=== PATIENT | female | born 1960 | race Caucasian/White ===

== ENCOUNTER 2016-11-24 09:01 | Emergency (ER) | payer SELFPAY ==
[~2016-11-24] VITALS: Ht 162.6 cm; Wt 126.6 kg
[2016-11-24 10:09] LABS: BASOPHIL COUNT 0.1 K/uL (0-0.1); EOSINOPHIL COUNT 0.2 K/uL (0-0.3); IMMATURE GRANULOCYTE (%) 2.8 % (0.0-0.7); IMMATURE GRANULOCYTE COUNT 0.3 K/uL; INSTRUMENT ABS NEUTROPHIL CT 8.1 K/uL; MCH 28.1 PG (29.0-34.0); MCHC 31.3 G/DL (30.0-36.0); MCV 89.6 FL (83-99); MONOCYTE (%) 6.9 % (3-12); MONOCYTE COUNT 0.7 K/uL (0-0.8); NEUTROPHIL (%) 77.6 % (45-76); NEUTROPHIL COUNT 8.1 K/uL (1.8-6.4); PLATELET COUNT 261 K/uL (156-360); RBC DIS.WIDTH-CV 14.2 % (11.8-14.6); RBC DIS.WIDTH-SD 46.6 % (39-53); RED BLOOD COUNT 5.02 M/uL (3.80-5.20); WHITE BLOOD COUNT 10.4 K/uL (4.1-10.2)
[2016-11-24 10:26] LABS: CHLORIDE 103 mEq/L (99-109); POTASSIUM 4.9 mEq/L (3.7-5.4); SODIUM 141 mEq/L (136-147)
[2016-11-24 10:28] LABS: GLUCOSE 99 mg/dL (70-99)
[2016-11-24 10:29] LABS: ANION GAP 7 MEQ/L (2-14)
[2016-11-24 10:31] LABS: GFR ESTIMATE (CALCULATED) > 59 mL/min/
[2016-11-24 10:32] LABS: UREA NITROGEN (BUN) 20 mg/dL (9-23)
[2016-11-24 10:34] LABS: LIPASE 21 U/L (1.0-51.0)
[2016-11-24] MEDS ORDERED: PERCOCET 5/31 TABLET PO (14:12)
[2016-11-24] MEDS ORDERED: AUGMENTIN875 MG PO (14:44)
[2016-11-24 14:49] VITALS: BP 159/84
== END 2016-11-24 14:50 | disposition home or self-care (01) ==
LOC: EME 09:01
PROVIDERS: Emergency Medicine
PROC: 0S9C3ZZ Drainage of Right Knee Joint, Percutaneous Approach (ICD-10-PCS; principal; 2016-11-24)
DX: M17.11 Unilateral primary osteoarthritis, right knee (principal); M71.21 Synovial cyst of popliteal space [Baker], right knee; R59.0 Localized enlarged lymph nodes; I73.00 Raynaud's syndrome without gangrene; Z87.891 Personal history of nicotine dependence
CPT/HCPCS: 71020; 73564; 80048; 83690; 85025; 87070; 87205; 89051; 89060; 93971; 99281; 99283

== ENCOUNTER 2017-03-14 16:16 | Inpatient (IN) | payer OTHER ==
[~2017-03-14] VITALS: Ht 160 cm; Wt 162.4 kg
[~2017-03-14 16:16] MED LIST: ADVIL,NUPRIN,M200 MG PO; AUGMENTIN875 MG PO; NICOTINE PATCH1 EAC2 TD; PERCOCET 5/31 TABLET PO; VENTOLIN HFA18 GM IH
[2017-03-14 17:07] LABS: HEMATOCRIT 43.1 % (36.0-46.0); MCH 27.6 PG (29.0-34.0); MCHC 31.3 G/DL (30.0-36.0); MEAN PLAT.VOLUME 8.2 uM^3 (9.5-12.4); PLATELET COUNT 316 K/uL (156-360); RBC DIS.WIDTH-CV 14.9 % (11.8-14.6); WHITE BLOOD COUNT 14.9 K/uL (4.1-10.2)
[2017-03-14 17:15] LABS: INTER. NORMALIZED RATIO 1.2
[2017-03-14 17:16] LABS: CHLORIDE 99 mEq/L (99-109); POTASSIUM 4.2 mEq/L (3.7-5.4); SODIUM 139 mEq/L (136-147)
[2017-03-14 17:18] LABS: PTT 30.5 SEC (25-37)
[2017-03-14 17:18] LABS: GLUCOSE 118 mg/dL (70-99)
[2017-03-14 17:19] LABS: ANION GAP 10 MEQ/L (2-14)
[2017-03-14 17:20] LABS: TOTAL BILIRUBIN 0.3 mg/dL (0.0-1.0)
[2017-03-14 17:22] LABS: ALKALINE PHOSPHATASE 100 IU/L (3-129); GFR ESTIMATE (CALCULATED) > 59 mL/min/
[2017-03-14 17:23] LABS: UREA NITROGEN (BUN) 15 mg/dL (9-23)
[2017-03-14 17:43] LABS: ABS NEUTROPHIL COUNT 12.8; ANISOCYTOSIS 1+; BAND NEUTROPHILS 0.9 % (0-8.0); BASOPHILS 0.9 %; EOSINOPHIL ABS CT 0.5; EOSINOPHILS 3.5 % (0-5.0); INSTRUMENT ABS NEUTROPHIL CT 12.4 K/uL; LYMPHOCYTES 2.6 % (15.0-45.0); METAMYELOCYTES 1.7 %; NUCLEATED RBC'S 0.9; PLAT.SUFFICIENCY INCREASED; PLATELET CLUMPS PRESENT - PLATELET COUNT APPEARS INCREASED; SEG.NEUTROPHILS 85.2 % (46.0-76.0)
[2017-03-14] MEDS ORDERED: MORPHABOND ER15 MG PO (21:19)
[2017-03-14] MEDS ORDERED: OXYCODONE HCL10 MG PO (21:20)
[2017-03-14] MEDS ORDERED: ATIVAN0.5 MG PO (21:20)
[2017-03-15] VITALS (7 sets, daily range): BP systolic 118–143; BP diastolic 57–82
[2017-03-15 09:40] LABS: HEMATOCRIT 39.9 % (36.0-46.0); MCH 27.1 PG (29.0-34.0); MCHC 31.3 G/DL (30.0-36.0); MCV 86.4 FL (83-99); MEAN PLAT.VOLUME 8.2 uM^3 (9.5-12.4); PLATELET COUNT 336 K/uL (156-360); RBC DIS.WIDTH-CV 14.9 % (11.8-14.6); RBC DIS.WIDTH-SD 47.8 % (39-53); RED BLOOD COUNT 4.62 M/uL (3.80-5.20); WHITE BLOOD COUNT 13.5 K/uL (4.1-10.2)
[2017-03-15 09:44] LABS: INTER. NORMALIZED RATIO 1.2; PROTHROMBIN TIME 13.7 SEC (10.2-12.9)
[2017-03-15 09:47] LABS: PTT 31.5 SEC (25-37)
[2017-03-15 10:04] LABS: ALKALINE PHOSPHATASE 89 IU/L (3-129); ANION GAP 8 MEQ/L (2-14); CHLORIDE 97 MEQ/L (99-109); GFR ESTIMATE (CALCULATED) > 59 mL/min/; GLUCOSE 109 mg/dL (70-99); SAMPLE HEMOLYSIS CHECK 0; SAMPLE ICTERIC CHECK 0; SAMPLE LIPEMIA CHECK 0; SODIUM 136 MEQ/L (136-147); TOTAL BILIRUBIN 0.3 MG/DL (0.0-1.0); UREA NITROGEN (BUN) 14 mg/dL (9-23)
[2017-03-15 12:28] LABS: LACTATE DEHYDROGENASE 515 IU/L (20-246)
[2017-03-16 04:05] VITALS: BP 119/56
[2017-03-16 04:33] LABS: MCH 26.8 PG (29.0-34.0); MCHC 30.2 G/DL (30.0-36.0); MCV 88.6 FL (83-99); MEAN PLAT.VOLUME 8.3 uM^3 (9.5-12.4); PLATELET COUNT 352 K/uL (156-360); RBC DIS.WIDTH-CV 14.9 % (11.8-14.6); RBC DIS.WIDTH-SD 48.7 % (39-53); RED BLOOD COUNT 4.74 M/uL (3.80-5.20); WHITE BLOOD COUNT 14.6 K/uL (4.1-10.2)
[2017-03-16 04:42] LABS: CHLORIDE 101 mEq/L (99-109); MAGNESIUM 2.1 mg/dL (1.3-2.7); POTASSIUM 4.1 mEq/L (3.7-5.4); SODIUM 140 mEq/L (136-147)
[2017-03-16 04:44] LABS: GLUCOSE 114 mg/dL (70-99)
[2017-03-16 04:46] LABS: ANION GAP 12 MEQ/L (2-14); TOTAL BILIRUBIN 0.3 mg/dL (0.0-1.0)
[2017-03-16 04:48] LABS: ALKALINE PHOSPHATASE 96 IU/L (3-129); GFR ESTIMATE (CALCULATED) > 59 mL/min/
[2017-03-16 04:49] LABS: UREA NITROGEN (BUN) 11 mg/dL (9-23)
[2017-03-16 05:33] LABS: ANISOCYTOSIS 2+; BASOPHILS 0.9 %; EOSINOPHIL ABS CT 0.5; EOSINOPHILS 3.5 % (0-5.0); INSTRUMENT ABS NEUTROPHIL CT 11.6 K/uL; LYMPHOCYTES 4.4 % (15.0-45.0); MICROCYTOSIS 1+; MYELOCYTES 2.6 %; PLAT.SUFFICIENCY ADEQUATE; POLYCHROMASIA 2+; ROULEAUX 1+; SEG.NEUTROPHILS 82.5 % (46.0-76.0); STOMATOCYTES 1+
[2017-03-16 07:53] VITALS: BP 118/60
[2017-03-16 11:40] VITALS: BP 118/71
[2017-03-16 15:17] VITALS: BP 113/58
[2017-03-16 17:47] VITALS: BP 97/50
[2017-03-17] VITALS (8 sets, daily range): BP systolic 122–146; BP diastolic 57–81
[2017-03-17 06:12] LABS: MCH 26.4 PG (29.0-34.0); MCV 88.1 FL (83-99); MEAN PLAT.VOLUME 8.1 uM^3 (9.5-12.4); PLATELET COUNT 353 K/uL (156-360); RBC DIS.WIDTH-CV 14.8 % (11.8-14.6); RBC DIS.WIDTH-SD 47.7 % (39-53); RED BLOOD COUNT 4.54 M/uL (3.80-5.20); WHITE BLOOD COUNT 13.5 K/uL (4.1-10.2)
[2017-03-17 06:39] LABS: ALKALINE PHOSPHATASE 85 IU/L (3-129); ANION GAP 7 MEQ/L (2-14); CHLORIDE 100 MEQ/L (99-109); GFR ESTIMATE (CALCULATED) > 59 mL/min/; GLUCOSE 114 mg/dL (70-99); MAGNESIUM 2.2 mg/dl (1.3-2.7); POTASSIUM 4.1 MEQ/L (3.7-5.4); SAMPLE HEMOLYSIS CHECK 0; SAMPLE ICTERIC CHECK 0; SAMPLE LIPEMIA CHECK 0; SODIUM 142 MEQ/L (136-147); UREA NITROGEN (BUN) 15 mg/dL (9-23); URIC ACID 4.4 mg/dL (3.1-9.2)
[2017-03-17 06:43] LABS: TOTAL BILIRUBIN 0.4 MG/DL (0.0-1.0)
[2017-03-17 06:57] LABS: ABS NEUTROPHIL COUNT 11.2; ANISOCYTOSIS 1+; BAND NEUTROPHILS 0.9 % (0-8.0); EOSINOPHIL ABS CT 0.6; EOSINOPHILS 4.3 % (0-5.0); INSTRUMENT ABS NEUTROPHIL CT 10.8 K/uL; LYMPHOCYTES 3.5 % (15.0-45.0); METAMYELOCYTES 0.9 %; MYELOCYTES 5.2 %; PLAT.SUFFICIENCY ADEQUATE; POLYCHROMASIA 1+; SEG.NEUTROPHILS 81.7 % (46.0-76.0); SMUDGE CELLS 5.2
[2017-03-17 14:27] LABS: POC NON-PRINT COM 1 ND
[2017-03-18] VITALS (8 sets, daily range): BP systolic 113–141; BP diastolic 55–71
[2017-03-18 08:20] LABS: HEMATOCRIT 41.5 % (36.0-46.0); MCH 27.6 PG (29.0-34.0); MCHC 30.8 G/DL (30.0-36.0); MCV 89.6 FL (83-99); MEAN PLAT.VOLUME 8.4 uM^3 (9.5-12.4); PLATELET COUNT 370 K/uL (156-360); RBC DIS.WIDTH-CV 15.2 % (11.8-14.6); RBC DIS.WIDTH-SD 49.4 % (39-53); RED BLOOD COUNT 4.63 M/uL (3.80-5.20); WHITE BLOOD COUNT 13.2 K/uL (4.1-10.2)
[2017-03-18 08:43] LABS: MAGNESIUM 2.3 mg/dl (1.3-2.7); URIC ACID 4.1 mg/dL (3.1-9.2)
[2017-03-18 08:47] LABS: ALKALINE PHOSPHATASE 86 IU/L (3-129); ANION GAP 4 MEQ/L (2-14); CHLORIDE 99 MEQ/L (99-109); GFR ESTIMATE (CALCULATED) > 59 mL/min/; GLUCOSE 95 mg/dL (70-99); POTASSIUM 4.9 MEQ/L (3.7-5.4); SAMPLE HEMOLYSIS CHECK 0; SAMPLE ICTERIC CHECK 0; SAMPLE LIPEMIA CHECK 0; SODIUM 141 MEQ/L (136-147); TOTAL BILIRUBIN 0.4 MG/DL (0.0-1.0); UREA NITROGEN (BUN) 11 mg/dL (9-23)
[2017-03-18 08:55] LABS: ABS NEUTROPHIL COUNT 10.7; ATYPICAL LYMPHOCYTE 0.9 %; EOSINOPHIL ABS CT 0.3; EOSINOPHILS 2.6 % (0-5.0); HEMATOLOGY COMMENT 1 SN; INSTRUMENT ABS NEUTROPHIL CT 10.4 K/uL; LYMPHOCYTES 6.9 % (15.0-45.0); METAMYELOCYTES 0.9 %; MYELOCYTES 1.7 %; PLAT.SUFFICIENCY INCREASED; POLYCHROMASIA 1+; SEG.NEUTROPHILS 80.9 % (46.0-76.0); SMUDGE CELLS 0.9
[2017-03-18 19:28] LABS: ALKALINE PHOSPHATASE 92 IU/L (3-129); ANION GAP 9 MEQ/L (2-14); CHLORIDE 101 MEQ/L (99-109); GFR ESTIMATE (CALCULATED) > 59 mL/min/; GLUCOSE 140 mg/dL (70-99); MAGNESIUM 2.2 mg/dl (1.3-2.7); POTASSIUM 4.4 MEQ/L (3.7-5.4); SAMPLE HEMOLYSIS CHECK 0; SAMPLE ICTERIC CHECK 0; SAMPLE LIPEMIA CHECK 0; SODIUM 140 MEQ/L (136-147); UREA NITROGEN (BUN) 10 mg/dL (9-23)
[2017-03-18 19:46] LABS: TOTAL BILIRUBIN 0.3 MG/DL (0.0-1.0)
[2017-03-19 04:03] VITALS: BP 155/74
[2017-03-19 06:04] LABS: BASOPHIL COUNT 0.1 K/uL (0-0.1); EOSINOPHIL (%) 0 % (0-5); HEMATOCRIT 40.2 % (36.0-46.0); IMMATURE GRANULOCYTE (%) 3.9 % (0.0-0.7); IMMATURE GRANULOCYTE COUNT 0.6 K/uL; INSTRUMENT ABS NEUTROPHIL CT 14.2 K/uL; LYMPHOCYTE COUNT 0.2 K/uL (1.0-2.8); MCH 26.7 PG (29.0-34.0); MCHC 30.6 G/DL (30.0-36.0); MCV 87.2 FL (83-99); MEAN PLAT.VOLUME 8.2 uM^3 (9.5-12.4); MONOCYTE (%) 3.3 % (3-12); MONOCYTE COUNT 0.5 K/uL (0-0.8); NEUTROPHIL (%) 90.9 % (45-76); NEUTROPHIL COUNT 14.2 K/uL (1.8-6.4); PLATELET COUNT 298 K/uL (156-360); RBC DIS.WIDTH-CV 14.5 % (11.8-14.6); RBC DIS.WIDTH-SD 46.3 % (39-53); RED BLOOD COUNT 4.61 M/uL (3.80-5.20); WHITE BLOOD COUNT 15.7 K/uL (4.1-10.2)
[2017-03-19 06:28] LABS: MAGNESIUM 2.3 mg/dl (1.3-2.7); URIC ACID 4.7 mg/dL (3.1-9.2)
[2017-03-19 06:41] LABS: ALKALINE PHOSPHATASE 80 IU/L (3-129); ANION GAP 6 MEQ/L (2-14); CHLORIDE 102 MEQ/L (99-109); GFR ESTIMATE (CALCULATED) > 59 mL/min/; GLUCOSE 140 mg/dL (70-99); POTASSIUM 4.4 MEQ/L (3.7-5.4); SAMPLE HEMOLYSIS CHECK 0; SAMPLE ICTERIC CHECK 0; SAMPLE LIPEMIA CHECK 0; SODIUM 139 MEQ/L (136-147); TOTAL BILIRUBIN 0.3 MG/DL (0.0-1.0); UREA NITROGEN (BUN) 12 mg/dL (9-23)
[2017-03-19 07:27] VITALS: BP 117/68
[2017-03-19 11:49] VITALS: BP 128/67
[2017-03-19 15:41] VITALS: BP 145/76
[2017-03-19 17:49] LABS: ALKALINE PHOSPHATASE 88 IU/L (3-129); ANION GAP 11 MEQ/L (2-14); CHLORIDE 103 MEQ/L (99-109); GFR ESTIMATE (CALCULATED) > 59 mL/min/; GLUCOSE 153 mg/dL (70-99); MAGNESIUM 2.3 mg/dl (1.3-2.7); POTASSIUM 4.6 MEQ/L (3.7-5.4); SAMPLE HEMOLYSIS CHECK 0; SAMPLE ICTERIC CHECK 0; SAMPLE LIPEMIA CHECK 0; SODIUM 144 MEQ/L (136-147); TOTAL BILIRUBIN 0.3 MG/DL (0.0-1.0); UREA NITROGEN (BUN) 16 mg/dL (9-23)
[2017-03-19 20:03] VITALS: BP 150/70
[2017-03-19 23:40] VITALS: BP 148/76
[2017-03-20] VITALS (7 sets, daily range): BP systolic 134–176; BP diastolic 67–87
[2017-03-20 06:05] LABS: EOSINOPHIL (%) 0.5 % (0-5); EOSINOPHIL COUNT 0.1 K/uL (0-0.3); HEMATOCRIT 39.7 % (36.0-46.0); IMMATURE GRANULOCYTE (%) 1.2 % (0.0-0.7); IMMATURE GRANULOCYTE COUNT 0.1 K/uL; INSTRUMENT ABS NEUTROPHIL CT 9.3 K/uL; LYMPHOCYTE COUNT 0.7 K/uL (1.0-2.8); MCH 26.4 PG (29.0-34.0); MCHC 30.2 G/DL (30.0-36.0); MCV 87.4 FL (83-99); MEAN PLAT.VOLUME 8.6 uM^3 (9.5-12.4); MONOCYTE (%) 4.5 % (3-12); MONOCYTE COUNT 0.5 K/uL (0-0.8); NEUTROPHIL (%) 87.4 % (45-76); NEUTROPHIL COUNT 9.3 K/uL (1.8-6.4); PLATELET COUNT 341 K/uL (156-360); RBC DIS.WIDTH-CV 14.5 % (11.8-14.6); RBC DIS.WIDTH-SD 46.5 % (39-53); RED BLOOD COUNT 4.54 M/uL (3.80-5.20); WHITE BLOOD COUNT 10.6 K/uL (4.1-10.2)
[2017-03-20 06:24] LABS: MAGNESIUM 2.3 mg/dl (1.3-2.7); URIC ACID 2.9 mg/dL (3.1-9.2)
[2017-03-20 06:25] LABS: ALKALINE PHOSPHATASE 77 IU/L (3-129); ANION GAP 6 MEQ/L (2-14); CHLORIDE 104 MEQ/L (99-109); GFR ESTIMATE (CALCULATED) > 59 mL/min/; SAMPLE HEMOLYSIS CHECK 0; SAMPLE ICTERIC CHECK 0; SAMPLE LIPEMIA CHECK 0; SODIUM 142 MEQ/L (136-147); TOTAL BILIRUBIN 0.3 MG/DL (0.0-1.0); UREA NITROGEN (BUN) 14 mg/dL (9-23)
[2017-03-20 06:26] LABS: GLUCOSE 98 mg/dL (70-99)
[2017-03-20 14:18] LABS: NUMBER OF MARKERS 22; SPECIMEN VIABILITY 98
[2017-03-20 16:26] LABS: POINT-OF-CARE METER ID UU13113725
[2017-03-20 16:57] LABS: ALKALINE PHOSPHATASE 75 IU/L (3-129); ANION GAP 8 MEQ/L (2-14); CHLORIDE 104 MEQ/L (99-109); GFR ESTIMATE (CALCULATED) > 59 mL/min/; MAGNESIUM 2.3 mg/dl (1.3-2.7); POTASSIUM 4.1 MEQ/L (3.7-5.4); SAMPLE HEMOLYSIS CHECK 0; SAMPLE ICTERIC CHECK 0; SAMPLE LIPEMIA CHECK 0; SODIUM 139 MEQ/L (136-147); TOTAL BILIRUBIN 0.3 MG/DL (0.0-1.0); UREA NITROGEN (BUN) 15 mg/dL (9-23)
[2017-03-20 17:03] LABS: GLUCOSE 159 mg/dL (70-99)
[2017-03-21 04:01] VITALS: BP 148/72
[2017-03-21 06:11] LABS: BASOPHIL COUNT 0.1 K/uL (0-0.1); EOSINOPHIL (%) 0.2 % (0-5); EOSINOPHIL COUNT 0.1 K/uL (0-0.3); IMMATURE GRANULOCYTE (%) 2.3 % (0.0-0.7); IMMATURE GRANULOCYTE COUNT 0.8 K/uL; INSTRUMENT ABS NEUTROPHIL CT 31.7 K/uL; LYMPHOCYTE COUNT 0.7 K/uL (1.0-2.8); MEAN PLAT.VOLUME 8.6 uM^3 (9.5-12.4); MONOCYTE (%) 1.2 % (3-12); MONOCYTE COUNT 0.4 K/uL (0-0.8); NEUTROPHIL (%) 94.1 % (45-76); NEUTROPHIL COUNT 31.7 K/uL (1.8-6.4); PLATELET COUNT 313 K/uL (156-360)
[2017-03-21 06:14] LABS: HEMATOCRIT 39.3 % (36.0-46.0); MCH 27.6 PG (29.0-34.0); MCHC 31.6 G/DL (30.0-36.0); MCV 87.5 FL (83-99); RBC DIS.WIDTH-CV 14.8 % (11.8-14.6); RBC DIS.WIDTH-SD 47.2 % (39-53); RED BLOOD COUNT 4.49 M/uL (3.80-5.20); WHITE BLOOD COUNT 33.7 K/uL (4.1-10.2)
[2017-03-21 06:34] LABS: MAGNESIUM 2.3 mg/dl (1.3-2.7); URIC ACID 2.2 mg/dL (3.1-9.2)
[2017-03-21 06:35] LABS: ALKALINE PHOSPHATASE 77 IU/L (3-129); ANION GAP 6 MEQ/L (2-14); CHLORIDE 105 MEQ/L (99-109); GFR ESTIMATE (CALCULATED) > 59 mL/min/; POTASSIUM 4.1 MEQ/L (3.7-5.4); SAMPLE HEMOLYSIS CHECK 0; SAMPLE ICTERIC CHECK 0; SAMPLE LIPEMIA CHECK 0; SODIUM 143 MEQ/L (136-147); UREA NITROGEN (BUN) 12 mg/dL (9-23)
[2017-03-21 06:36] LABS: GLUCOSE 72 mg/dL (70-99); TOTAL BILIRUBIN 0.5 MG/DL (0.0-1.0)
[2017-03-21 06:55] VITALS: BP 161/80
[2017-03-21 15:08] VITALS: BP 117/59
[2017-03-21 23:22] VITALS: BP 134/69
[2017-03-22 06:25] LABS: MAGNESIUM 2.5 mg/dl (1.3-2.7); URIC ACID 2.1 mg/dL (3.1-9.2)
[2017-03-22 06:28] LABS: MEAN PLAT.VOLUME 8.8 uM^3 (9.5-12.4); PLATELET COUNT 371 K/uL (156-360)
[2017-03-22 06:33] LABS: HEMATOCRIT 42.1 % (36.0-46.0); MCHC 32.3 G/DL (30.0-36.0); MCV 86.6 FL (83-99); RBC DIS.WIDTH-SD 47.8 % (39-53); RED BLOOD COUNT 4.86 M/uL (3.80-5.20)
[2017-03-22 06:34] LABS: WHITE BLOOD COUNT 45.3 K/uL (4.1-10.2)
[2017-03-22 06:45] LABS: ABS NEUTROPHIL COUNT 44.5; ANISOCYTOSIS 1+; EOSINOPHIL ABS CT 0; HYPOCHROMASIA 1+; INSTRUMENT ABS NEUTROPHIL CT 40.1 K/uL; PLAT.SUFFICIENCY ADEQUATE; SEG.NEUTROPHILS 98.2 % (46.0-76.0); TARGET CELLS 1+
[2017-03-22 06:51] LABS: ALKALINE PHOSPHATASE 92 IU/L (3-129); ANION GAP 10 MEQ/L (2-14); CHLORIDE 102 MEQ/L (99-109); GFR ESTIMATE (CALCULATED) > 59 mL/min/; SAMPLE HEMOLYSIS CHECK 0; SAMPLE ICTERIC CHECK 0; SAMPLE LIPEMIA CHECK 0; SODIUM 143 MEQ/L (136-147); TOTAL BILIRUBIN 0.6 MG/DL (0.0-1.0); UREA NITROGEN (BUN) 16 mg/dL (9-23)
[2017-03-22 06:52] LABS: GLUCOSE 107 mg/dL (70-99)
[2017-03-22 06:56] VITALS: BP 142/68
[2017-03-22] MEDS ORDERED: BISAC-EVAC10 MG PR (09:13)
[2017-03-22] MEDS ORDERED: MORPHINE SULFAT15 M1 PO (09:13)
[2017-03-22] MEDS ORDERED: AVENTYL,PAMELOR25 MG PO (09:13)
[2017-03-22] MEDS ORDERED: DOCUSATE SODIU100 MG PO (09:13)
[2017-03-22] MEDS ORDERED: SENNA PLUS TAB1 EACH PO (09:13)
[2017-03-22] MEDS ORDERED: TOPIRAMATE25 MG PO (09:13)
[2017-03-22] MEDS ORDERED: XARELTO15 MG PO (09:13)
[2017-03-22] MEDS ORDERED: OXYCODONE HCL5 MG PO (09:13)
== END 2017-03-22 13:23 | disposition home or self-care (01) | DRG 841 ==
LOC: EME 16:16 → 5EAST 22:50 → EDOF 22:50 → 3EAST 22:50 → ENRESERV 22:56 → CANRESERV 03-15 → 3EAST 03-15 00:44 → ENRESERV 03-15 16:34 → 5EAST 03-16 17:36 → ENPENDDIS 03-22 → 5EAST 03-22 13:23
PROVIDERS: Emergency Medicine; Internal Medicine; Internal Medicine Medical Oncology
DX: C83.35 Diffuse large B-cell lymphoma, lymph nodes of inguinal region and lower limb (principal); G89.3 Neoplasm related pain (acute) (chronic); I82.431 Acute embolism and thrombosis of right popliteal vein; I82.491 Acute embolism and thrombosis of other specified deep vein of right lower extremity; D68.69 Other thrombophilia; I95.9 Hypotension, unspecified; F17.200 Nicotine dependence, unspecified, uncomplicated; F40.240 Claustrophobia; G43.909 Migraine, unspecified, not intractable, without status migrainosus; K59.00 Constipation, unspecified; I10 Essential (primary) hypertension; I27.20 Pulmonary hypertension, unspecified; I73.00 Raynaud's syndrome without gangrene; I87.8 Other specified disorders of veins; K21.9 Gastro-esophageal reflux disease without esophagitis; M17.9 Osteoarthritis of knee, unspecified; J44.9 Chronic obstructive pulmonary disease, unspecified; F41.9 Anxiety disorder, unspecified; E66.01 Morbid (severe) obesity due to excess calories; Z68.44 Body mass index [BMI] 60.0-69.9, adult; Z79.891 Long term (current) use of opiate analgesic
CPT/HCPCS: 73701; 77012; 77290; 77307; 77334; 80053; 82272; 82948; 83615; 83735; 84100; 84550; 85025; 85027; 85610; 85730; 85999; 93306; 93971; 99281; 99285; C1751; C1894; J0690; J1100; J1170; J1200; J1447; J1453; J1644; J1885; J2060; J2250; J2270; J2405; J2469; J3010; J7030; J7040; J7050; J7512; J9000; J9070; J9310; J9370; Q0169; S0020